=== PATIENT | male | born 1975 ===

== ENCOUNTER 2018-10-15 15:32 | Emergency (ER) | payer MEDICAID ==
[2018-10-15 15:45] VITALS: RESP 16
[2018-10-15 17:11] VITALS: BP 120/70; PULSE 78; TEMP 98.7; O2SAT 97
--- NOTE | 2018-10-15 17:19 | C.PDOC ---
History Of Present Illness 43 year old male presents to the emergency department with complaints of a rash to his right chest for the last two days associated with pain. Patient has remote history of chicken pox. Patient also reports a left third toe ulcer which he has had for over a year. Time Seen by Provider: 10/15/18 17:15 Chief Complaint (Nursing): Abnormal Skin Integrity History Per: Patient History/Exam Limitations: no limitations Onset/Duration Of Symptoms: Days (2) Current Symptoms Are (Timing): Still Present Location Of Injury: Right: Chest, Anterior: Chest Past Medical History Reviewed: Historical Data, Nursing Documentation, Vital Signs Vital Signs: Last Vital Signs Temp 98.7 F 10/15/18 17:10 Pulse 78 10/15/18 17:10 Resp 16 10/15/18 15:43 BP 120/70 10/15/18 17:10 Pulse Ox 97 10/15/18 17:10 - Medical History PMH: No Chronic Diseases Surgical History: No Surg Hx Family History: States: No Known Family Hx - Social History Hx Alcohol Use: No Hx Substance Use: No - Immunization History Hx Tetanus Toxoid Vaccination: No Hx Influenza Vaccination: No Hx Pneumococcal Vaccination: No Review Of Systems Except As Marked, All Systems Reviewed And Found Negative. Constitutional: Negative for: Fever, Chills Cardiovascular: Positive for: Chest Pain Musculoskeletal: Positive for: Foot Pain (left third toe) Skin: Positive for: Rash Physical Exam - Physical Exam Appears: Non-toxic, No Acute Distress Skin: Warm, Dry, Rash (vesicular rash to the right side of his chest. ) Head: Atraumatic, Normacephalic Eye(s): bilateral: Normal Inspection, PERRL, EOMI Oral Mucosa: Moist Tongue: No Swelling Lips: No Swelling Throat: Normal, No Erythema, No Exudate Neck: Normal, Supple Chest: Symmetrical, No Tenderness Cardiovascular: Rhythm Regular, No Murmur Respiratory: Normal Breath Sounds, No Rales, No Rhonchi, No Wheezing Gastrointestinal/Abdominal: Normal Exam, Soft, No Tenderness Extremity: Normal ROM, Other (superficial ulcer to the left great toe) Neurological/Psych: Oriented x3, Normal Speech, Normal Cognition ED Course And Treatment ECG: Interpreted By Me, Viewed By Me ECG Rhythm: Sinus Rhythm ECG Interpretation: Normal, No Acute Changes Rate From EC O2 Sat by Pulse Oximetry: 97 (RA) Pulse Ox Interpretation: Normal Medical Decision Making Medical Decision Making: Plan: Glucose POC Acyclovir 800mg PO XR Left Foot Discussed with podiatry, agreed to outpatient follow-up. ulcer seen by podiatry residnet. superficial . advise outpt fu. xr neg. shingle on exam. Disposition - Disposition Referrals: [facility] [Outside] [facility] [Outside] [facility] [Outside] Disposition: HOME/ ROUTINE Disposition Time: 19:00 Condition: STABLE Additional Instructions: follow up with specialist. return to er with worsening. Prescriptions: RX: Acyclovir [Zovirax] 800 mg PO 5XD #35 tab Instructions: Shingles, Pressure Sores Forms: [employer] ([place]) - Clinical Impression Clinical Impression: Shingles, Toe ulcer - Scribe Statement The provider has reviewed the documentation as recorded by the Scribe (Jason Carrillo) Provider Attestation: All medical record entries made by the Scribe were at my direction and personally dictated by me. I have reviewed the chart and agree that the record accurately reflects my personal performance of the history, physical exam, medical decision making, and the department course for this patient. I have also personally directed, reviewed, and agree with the discharge instructions and disposition.
--- NOTE | 2018-10-16 08:56 | RAD ---
Date of service: 10/15/2018 PROCEDURE: Left Foot Radiographs. HISTORY: toe ulcer COMPARISON: None. FINDINGS: BONES: No periosteal reaction to suggest osteomyelitis noted. No gross osseous destruction appreciated . No fracture or lytic lesion. 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 OTHER FINDINGS: Os peroneum noted IMPRESSION: No periosteal reaction to suggest osteomyelitis noted. No gross osseous destruction appreciated . No gas-forming cellulitis appreciated.
--- NOTE | 2018-10-16 12:00 | CARD ---
APPROVED REPORT Date of service: 10/15/2018 EKG Measurement Heart [id number] <Conclusion> Normal sinus rhythm Normal ECG
== END 2018-10-15 18:45 | disposition home or self-care (01) ==
LOC: C.ER 15:32
DX: B02.9 Zoster without complications (principal); L97.529 Non-pressure chronic ulcer of other part of left foot with unspecified severity